=== PATIENT | male | born 1995 | race African-American/Black ===

== ENCOUNTER 2020-03-28 00:20 | Observation (INO) | payer SELFPAY ==
[2020-03-28] MEDS ORDERED: ACETAMINOPHEN 325 MG TABLET PO ONE (02:40)
[2020-03-28] MEDS ORDERED: NORMAL SALINE 1000 ML 1,000 ML IV ONE ×3 (02:40→03:53)
[2020-03-28] MEDS ORDERED: ONDANSETRON HCL INJ/PF 4 MG/2 ML SDV IV ONE (02:41)
--- NOTE | 2020-03-28 02:42 | ER Document Report ---
ED GI/ - General Chief Complaint: Abdominal Pain Stated Complaint: FEVER,ABDOMINAL PAIN Time Seen by Provider: 03/28/20 02:20 Mode of Arrival: Ambulatory Information source: Patient Notes: Patient presents complaining of right lower quadrant abdominal pain for the past 3 days. Patient reports nausea vomiting x2 episodes today. No no diarrhea, no urinary symptoms. Patient is pale, diaphoretic and complains of feeling lightheaded. TRAVEL OUTSIDE OF THE [place] IN LAST 30 DAYS: No - HPI Patient complains to provider of: Abdominal pain, Vomiting Onset: Other - 3 days Timing/Duration: Worse Quality of pain: Sharp Pain Level: 4 Location: RLQ Associated symptoms: Chills, Fever - Subjective, Nausea, Vomiting. denies: Diarrhea, Urinary hesitancy, Urinary frequency, Urinary retention Exacerbated by: Denies Relieved by: Denies Similar symptoms previously: No Recently seen / treated by doctor: No - Related Data Allergies/Adverse Reactions: iodine Allergy (Verified 03/28/20 06:46) peanut Allergy (Verified 03/28/20 06:46) shellfish derived Allergy (Verified 03/28/20 06:46) Past Medical History - General Information source: Patient - Social History Smoking Status: Never Smoker Frequency of alcohol use: None Drug Abuse: None Occupation: Property management Lives with: Family Family History: Reviewed & Not Pertinent - Medical History Medical History: Negative Past Surgical History: Reports: Hx Orthopedic Surgery - pin in both hips, Hx Tonsillectomy - Immunizations Immunizations up to date: Yes Hx Diphtheria, Pertussis, Tetanus Vaccination: Yes Review of Systems - Review of Systems Constitutional: Chills, Fever EENT: No symptoms reported Cardiovascular: Dizziness, Lightheaded Respiratory: No symptoms reported. denies: Cough, Short of breath Gastrointestinal: Abdominal pain, Nausea, Vomiting. denies: Diarrhea Genitourinary: No symptoms reported. denies: Dysuria, Flank pain Male Genitourinary: No symptoms reported Musculoskeletal: No symptoms reported Skin: No symptoms reported Hematologic/Lymphatic: No symptoms reported Neurological/Psychological: No symptoms reported Physical Exam - Vital signs Vitals: Temp Pulse Resp BP Pulse Ox 99.3 F 146 H 16 129/58 H 97 03/28/20 01:13 03/28/20 01:13 03/28/20 01:13 03/28/20 01:13 03/28/20 01:13 - General General appearance: Alert In distress: Moderate Notes: Patient pale, diaphoretic - HEENT Head: Normocephalic Eyes: Normal Conjunctiva: Normal Nasal: Normal Mouth/Lips: Normal Mucous membranes: Normal Neck: Normal, Supple. No: Lymphadenopathy - Respiratory Respiratory status: No respiratory distress Chest status: Nontender Breath sounds: Normal. No: Rales, Rhonchi, Stridor, Wheezing Chest palpation: Normal - Cardiovascular Rhythm: Tachycardia Heart sounds: S1 appreciated, S2 appreciated - Abdominal Inspection: Obese Distension: No distension Bowel sounds: Normal Tenderness: Tender Organomegaly: No organomegaly - Back Back: Normal, Nontender. No: CVA tenderness - Extremities General upper extremity: Normal inspection, Nontender, Normal ROM General lower extremity: Normal inspection, Nontender, Normal ROM - Neurological Neuro grossly intact: Yes Cognition: Normal [place] Coma Scale Eye Opening: Spontaneous [place] Coma Scale Verbal: Oriented [place] Coma Scale Motor: Obeys Commands [place] Coma Scale Total: 15 - Psychological Associated symptoms: Normal affect, Normal mood - Skin Skin Temperature: Warm Skin Moisture: Diaphoretic Skin Color: Pale Course - Re-evaluation Re-evalutation: 03/28/20 06:[address] Shah who states that patient has acute appendicitis with questionable early perforation to the distal tip. Call then placed to surgeon Dr. Suarez who states that he will be by to see patient in an hour or 2 and recommends keeping patient n.p.o. He will plan to take patient to surgery around 10 AM. 03/28/20 08:40 Report and handoff given to Maureen Josue NP - Vital Signs Vital signs: Temp Pulse Resp BP Pulse Ox 98.5 F 146 H 14 99/84 L 100 03/28/20 08:21 03/28/20 01:13 03/28/20 07:46 03/28/20 07:46 03/28/20 07:46 - Laboratory Result Diagrams: 03/28/20 03:10 03/28/20 03:10 Laboratory results interpreted by me: 03/28/20 03/28/20 03/28/20 03:10 03:10 03:10 Plt Count 140 L Lymph % (Auto) 6.6 L [place] % (Auto) 1.7 L Seg Neutrophils % 91.6 H PT 15.7 H Sodium 134.6 L Chloride 94 L Creatinine 1.56 H Est GFR (MDRD) Non-Af 55 L Glucose 125 H Total Bilirubin 1.7 H Urine Ketones 03/28/20 05:52 Plt Count Lymph % (Auto) [place] % (Auto) Seg Neutrophils % PT Sodium Chloride Creatinine Est GFR (MDRD) Non-Af Glucose Total Bilirubin Urine Ketones TRACE H - Diagnostic Test Radiology reviewed: Reports reviewed Discharge - Discharge Clinical Impression: Appendicitis Qualifiers: Appendicitis type: acute appendicitis Acute appendicitis type: unspecified acute appendicitis type Qualified Code(s): K35.80 - Unspecified acute appendicitis Abdominal pain Qualifiers: Abdominal location: right lower quadrant Qualified Code(s): R10.31 - Right lower quadrant pain Condition: Fair Disposition: ADMITTED OBSERVATION Admitting Provider: Surgicalist Unit Admitted: OR
[2020-03-28 03:27] LABS: ABSOLUTE LYMPHOCYTES (AUTO) 0.5 10^3/uL (0.5-4.7); ABSOLUTE MONOCYTES (AUTO) 0.1 10^3/uL (0.1-1.4); ABSOLUTE NEUT (AUTO) 6.9 10^3/uL (1.7-8.2); BASOPHILS % (AUTO) 0.1 % (0-2); HEMATOCRIT 43.4 % (37.9-51.0); HEMOGLOBIN 15.2 g/dL (13.5-17.0); LYMPHOCYTES % (AUTO) 6.6 % (13-45); MEAN CORPUSCULAR HEMOGLOBIN 30.3 pg (27.0-33.4); MEAN CORPUSCULAR HGB CONC 35.1 g/dL (32.0-36.0); MEAN CORPUSCULAR VOLUME 86 fl (80-97); MONOCYTES % (AUTO) 1.7 % (3-13); PLATELET COUNT 140 10^3/uL (150-450); RED BLOOD COUNT 5.04 10^6/uL (4.35-5.55); RED CELL DISTRIBUTION WIDTH 13.8 % (11.5-14.0); SEGMENTED NEUTROPHILS % (AUTO) 91.6 % (42-78); TOTAL CELLS COUNTED % (AUTO) 100 %; WHITE BLOOD COUNT 7.6 10^3/uL (4.0-10.5)
[2020-03-28 03:43] LABS: ALBUMIN 4.7 g/dL (3.5-5.0); ALKALINE PHOSPHATASE 75 U/L (38-126); ANION GAP 12 (5-19); ASPARTATE AMINO TRANSFERASE 32 U/L (17-59); BILIRUBIN,DIRECT 0.2 mg/dL (0.0-0.4); BILIRUBIN,TOTAL 1.7 mg/dL (0.2-1.3); BLOOD UREA NITROGEN 13 mg/dL (7-20); CALCIUM 9.3 mg/dL (8.4-10.2); CARBON DIOXIDE 29 mmol/L (22-30); CHLORIDE 94 mmol/L (98-107); GLUCOSE 125 mg/dL (75-110); POTASSIUM 3.7 mmol/L (3.6-5.0)
[2020-03-28 03:44] LABS: INTERNATIONAL RATION (INR) 1.25; PROTHROMBIN TIME 15.7 SEC (11.4-15.4)
[2020-03-28 03:45] LABS: VENOUS BLOOD BASE EXCESS 1.8 mmol/L; VENOUS BLOOD HCO3 27.8 mmol/L (20-32); VENOUS BLOOD PCO2 47.9 mmHg (35-63); VENOUS BLOOD PH 7.38 (7.30-7.42)
[2020-03-28] MEDS ORDERED: PIPERACILLIN/TAZOBACTAM 3.375 GM VIAL IV ONE ×2 (03:55→10:00)
--- NOTE | 2020-03-28 05:42 | RADIOLOGY REPORT (SQ) ---
EXAM DESCRIPTION: XR CHEST 1 VIEW COMPLETED DATE/TME: 03/28/2020 02:22 CLINICAL HISTORY: 24 years Male, fever COMPARISON:Sep 04 2016 NUMBER OF VIEWS/TECHNIQUE: 1/AP FINDINGS: Adequate lung volume, clear parenchyma, normal cardiac silhouette, and intact bony thorax. IMPRESSION: No acute cardiopulmonary findings.
--- NOTE | 2020-03-28 06:17 | RADIOLOGY REPORT (SQ) ---
CT abdomen and pelvis with contrast on 03/28/2020 at 4:52 AM CLINICAL INDICATION: Right lower quadrant pain TECHNIQUE: Multiple axial images are obtained throughout the abdomen and pelvis following the administration of IV contrast, 100 mL of Omnipaque 300contrast was administered intravenously without complication. This exam was performed according to our departmental dose-optimization program, which includes automated exposure control, adjustment of the mA and/or kV according to patient size and/or use of iterative reconstruction technique. Total DLP is 2094.17 mGy*cm. COMPARISON: None FINDINGS: Abdomen: Mild bilateral gynecomastia is noted. The lung bases are clear. The solid abdominal organs are unremarkable. There is no abdominal adenopathy. There is significant fluid and stranding in the right paracolic gutter. The appendix is significantly dilated and fluid-filled with surrounding fat stranding consistent with acute appendicitis. The appendix measures up to 2 cm in diameter. Along the distal aspect of the appendix there are several small rounded foci of air worrisome for early perforation. No abscess formation is noted but there is significant fluid and stranding in the right abdomen and pelvis related to the appendicitis. Recommend urgent surgical consultation. The abdominal portion of the GI tract is otherwise unremarkable. Pelvis: Small amount of free fluid is noted in the pelvis. There is no pelvic adenopathy. Pelvic portion of the GI tract is otherwise unremarkable. There is mild scoliosis of the spine. Screws are noted within each hip. No acute bony abnormality is noted. IMPRESSION: 1. Findings consistent with significant acute appendicitis and worrisome for early perforated appendicitis. Recommend urgent surgical consultation. 2. No other acute abnormality.
[2020-03-28 06:19] LABS: APPEARANCE,URINE CLEAR; BILIRUBIN,URINE NEGATIVE (NEGATIVE); COLOR,URINE YELLOW; GLUCOSE, URINE NEGATIVE (NEGATIVE); KETONES,URINE TRACE mg/dL (NEGATIVE); PROTEIN,URINE NEGATIVE (NEGATIVE); URINE SPECIFIC GRAVITY 1.017; UROBILINOGEN,URINE NEGATIVE mg/dL (<2.0)
[2020-03-28] MEDS ORDERED: NORMAL SALINE 1000 ML 600 ML IV ONE (06:45)
--- NOTE | 2020-03-28 09:36 | PDOC H&P ---
History of Present Illness Admission Date/PCP: 03/28/20 06:31 History of Present Illness: FELIPE COPELAND JR is a 24 year old malePatient presents complaining of right lower quadrant abdominal pain for the past 3 days. Patient reports nausea vomiting x2 episodes today. No no diarrhea, no urinary symptoms. Patient is pale, diaphoretic and complains of feeling lightheaded. TRAVEL OUTSIDE OF THE [place] IN LAST 30 DAYS: No Past Surgical History Past Surgical History: Reports: Orthopedic Surgery - pin in both hips, Tons illectomy Social History Lives with: Family Smoking Status: Never Smoker Family History Family History: Reviewed & Not Pertinent Parental Family History Reviewed: No Children Family History Reviewed: NA Sibling(s) Family History Reviewed.: NA Medication/Allergy Home Medications: Ondansetron [Zofran Odt 4 mg Tablet] 1 - 2 tab PO Q4H #10 tab.rapdis 09/04/16 Tramadol HCl [Ultram] 50 mg PO Q6 #30 tablet 09/04/16 Allergies/Adverse Reactions: iodine Allergy (Verified 03/28/20 06:46) peanut Allergy (Verified 03/28/20 06:46) shellfish derived Allergy (Verified 03/28/20 06:46) Review of Systems Constitutional: PRESENT: anorexia, fever(s) Eyes: ABSENT: as per HPI, visual disturbances, other Ears: ABSENT: as per HPI, hearing changes, other Nose, Mouth, and Throat: ABSENT: as per HPI, headache(s), mouth pain, sore throat, vertigo, other Breasts: ABSENT: as per HPI, other Cardiovascular: ABSENT: as per HPI, chest pain, dyspnea on exertion, edema, orthropnea, palpitations, other Gastrointestinal: PRESENT: abdominal pain Genitourinary: ABSENT: as per HPI, difficulty urinating, dysuria, hematuria, nocturia, other Musculoskeletal: ABSENT: as per HPI, back pain, deformity, joint swelling, muscle weakness, other Integumentary: ABSENT: as per HPI, diaphoresis, erythema, lesions, pruritus, rash, wounds, other Neurological: ABSENT: as per HPI, abnormal gait, abnormal movements, abnormal speech, confusion, convulsions, dizziness, focal weakness, frequent falls, lack of coordination, memory loss, numbness, paresthesias, restless legs, syncope, tingling, tremor(s), vertigo, weakness, other Psychiatric: ABSENT: as per HPI, anxiety, depression, hallucinations, homidical ideation, suicidal ideation, other Endocrine: ABSENT: as per HPI, cold intolerance, flushing, heat intolerance, menstrual abnormalities, polydipsia, polyphagia, polyuria, other Hematologic/Lymphatic: ABSENT: as per HPI, easy bleeding, easy bruising, lymphadenopathy, other Allergic/Immunologic: ABSENT: as per HPI, seasonal rhinorrhea, other Physical Exam Vital Signs: Temp Pulse Resp BP Pulse Ox 98.5 F 146 H 17 95/55 L 100 03/28/20 08:21 03/28/20 01:13 03/28/20 09:16 03/28/20 09:16 03/28/20 09:16 Intake & Output 03/27/20 03/28/20 03/29/20 06:59 06:59 06:59 Intake Total 3000 200 Balance 3000 200 Weight 122.47 kg General appearance: PRESENT: mild distress, obese Head exam: PRESENT: atraumatic Eye exam: PRESENT: EOMI Ear exam: PRESENT: normal external ear exam Mouth exam: PRESENT: moist Neck exam: PRESENT: full ROM Respiratory exam: PRESENT: clear to auscultation dhiraj Cardiovascular exam: PRESENT: RRR Pulses: PRESENT: normal radial pulses, normal femoral pulses Breast: PRESENT: Normal GI/Abdominal exam: PRESENT: guarding - rlw tenderness, guarding, rebound, tenderness Rectal exam: PRESENT: deferred Extremities exam: PRESENT: full ROM Musculoskeletal exam: PRESENT: full ROM Neurological exam: PRESENT: alert, awake, oriented to person, oriented to place Psychiatric exam: PRESENT: appropriate affect Skin exam: PRESENT: dry Results Laboratory Results: 03/28/20 03:10 03/28/20 03:10 03/28/20 03/28/20 03/28/20 03:10 03:10 03:10 WBC 7.6 RBC 5.04 Hgb 15.2 Hct 43.4 MCV 86 MCH 30.3 MCHC 35.1 RDW 13.8 Plt Count 140 L Seg Neutrophils % 91.6 H VBG pH 7.38 VBG pCO2 47.9 VBG HCO3 27.8 VBG Base Excess 1.8 Sodium 134.6 L Potassium 3.7 Chloride 94 L Carbon Dioxide 29 Anion Gap 12 BUN 13 Creatinine 1.56 H Est GFR ( Amer) > 60 Glucose 125 H Lactic Acid Calcium 9.3 Total Bilirubin 1.7 H AST 32 Alkaline Phosphatase 75 Total Protein 8.0 Albumin 4.7 Lipase 38.2 Urine Color Urine Appearance Urine pH Ur Specific [place] Urine Protein Urine Glucose (UA) Urine Ketones Urine Blood Urine RBC (Auto) 03/28/20 03/28/20 03:10 05:52 WBC RBC Hgb Hct MCV MCH MCHC RDW Plt Count Seg Neutrophils % VBG pH VBG pCO2 VBG HCO3 VBG Base Excess Sodium Potassium Chloride Carbon Dioxide Anion Gap BUN Creatinine Est GFR ( Amer) Glucose Lactic Acid 1.7 Calcium Total Bilirubin AST Alkaline Phosphatase Total Protein Albumin Lipase Urine Color YELLOW Urine Appearance CLEAR Urine pH 6.0 Ur Specific [place] 1.017 Urine Protein NEGATIVE Urine Glucose (UA) NEGATIVE Urine Ketones TRACE H Urine Blood NEGATIVE Urine RBC (Auto) 1 Impressions: Chest X-Ray 03/28/20 02:22 IMPRESSION: No acute cardiopulmonary findings. Abdomen/Pelvis CT 03/28/20 03:50 IMPRESSION: 1. Findings consistent with significant acute appendicitis and worrisome for early perforated appendicitis. Recommend urgent surgical consultation. 2. No other acute abnormality. Assessment & Plan - Plan Summary Plan Summary: acute appendicitis to or for lap appendectomy risks benifitrs discussed.
[2020-03-28] MEDS ORDERED: PROMETHAZINE HCL INJ 25 MG/1 ML VIAL ONE (09:41)
[2020-03-28] MEDS ORDERED: FENTANYL CITRATE INJ/PF 100 MCG/2 ML AMPUL ONE (09:41)
[2020-03-28] MEDS ORDERED: MIDAZOLAM 2 MG/2 ML INJ ONE (09:42)
[2020-03-28] MEDS ORDERED: DEXAMETHASONE SOD PHOSPHATE INJ 4 MG/1 ML VIAL ONE (09:42)
[2020-03-28] MEDS ORDERED: ONDANSETRON HCL INJ/PF 4 MG/2 ML SDV ONE (09:42)
[2020-03-28] MEDS ORDERED: PROPOFOL INJ 200 MG/20 ML VIAL IV ONE (09:42)
--- NOTE | 2020-03-28 09:54 | EKG REPORT ---
SEVERITY:- OTHERWISE NORMAL ECG - SINUS TACHYCARDIA : Confirmed by: Tommie Sutherland MD 28-Mar-2020 09:53:17
[2020-03-28] MEDS ORDERED: SUCCINYLCHOLINE CHLORIDE INJ 200 MG/10 ML VIAL ONE (10:08)
[2020-03-28] MEDS ORDERED: ROCURONIUM BROMIDE INJ 50 MG/5 ML VIAL IV ONE (10:08)
[2020-03-28] MEDS ORDERED: NEOSTIGMINE METHYLSULFATE 10 MG/10 ML VIAL ONE (10:08)
[2020-03-28] MEDS ORDERED: KETOROLAC TROMETHAMINE 60 MG/2 ML SDV ONE (10:08)
[2020-03-28] MEDS ORDERED: GLYCOPYRROLATE 1 MG/5 ML VIAL ONE (10:08)
[2020-03-28] MEDS ORDERED: FENTANYL CITRATE INJ/PF 100 MCG/2 ML AMPUL IV PRN ×3 (10:26)
[2020-03-28] MEDS ORDERED: MEPERIDINE HCL/PF INJ 25 MG/1 ML DISP.SYRIN IV PRN (10:26)
[2020-03-28] MEDS ORDERED: DIPHENHYDRAMINE HCL 50 MG/ML VIAL IV PRN (10:26)
[2020-03-28] MEDS ORDERED: PROMETHAZINE HCL INJ 25 MG/1 ML VIAL IV PRN ×2 (10:26)
[2020-03-28] MEDS ORDERED: MORPHINE SULFATE 10 MG/ML INJ IV PRN (10:26)
[2020-03-28] MEDS: BUPIVACAINE HCL 0.5%-EPI 1:200000 INJ/PF 30 ML VIAL ONE ×2 (11:02→11:16)
--- NOTE | 2020-03-28 11:25 | Operative Report ---
Nonrecallable Operative Report DATE OF SURGERY: 03/28/20 PREOPERATIVE DIAGNOSIS: appendicitis POSTOPERATIVE DIAGNOSIS: appendicitis OPERATION: laparoscopic appendectomy SURGEON: SALOMÓN MOYA ANESTHESIA: GA TISSUE REMOVED OR ALTERED: Appendix COMPLICATIONS: None ESTIMATED BLOOD LOSS: 25 cc INTRAOPERATIVE FINDINGS: Separative appendicitis PROCEDURE: Patient brought the operating room awake alert stable condition placed in the operating table supine position induced under general anesthesia intubated. The abdomen was prepped and draped in usual sterile fashion. After appropriate timeout site verification the procedure commenced. The varies needle was placed into the umbilicus and the abdomen was insufflated 6 L of CO2 gas infraumbilical 5 mm incision was made with a 15 blade After adequate insufflation the 5 mm port was placed in the infraumbilical position intra-abdominal visualization revealed no evidence of Veress needle trocar injury. A left lower quadrant 10 mm port placed under direct vision and a suprapubic 5 mm port appendix was visualized it was in a retrocecal position was mobilized medially and there was some fibrinous exudate on top of the appendix there is no obvious perforation was placed on traction the mesoappendix was taken down with one firing the Endo STEPHANIE stapler with a vascular then we came across the base of the appendix on the cecum with one firing the Endo STEPHANIE stapler with a blue load the appendix was placed in an Endobag and removed through the left lower quadrant port site. The right lower quadrant and pelvis was copiously irrigated normal saline suctioned dry the left lower quadrant fascial defect was closed with 0 Vicryl and all 3 skin incisions were closed with intracuticular 4-0 Biosyn Steri-Strips completed the procedure estimated blood loss was less than 25 cc sponge needle counts correct x2 the patient was awakened in the operative extubated transferred recovery in stable condition no complications
--- NOTE | 2020-03-28 11:32 | PDOC DISCHARGE SUMMARY ---
General - Admit/Disc Date/PCP Admission Date/Primary Care Provider: 03/28/20 06:31 Discharge Date: 03/28/20 - Discharge Diagnosis Final Diagnosis: Appendicitis - Additional Information Resuscitation Status: Full Code Discharge Diet: As Tolerated Discharge Activity: Activity As Tolerated, No Lifting Over 10 Pounds Prescriptions: Metronidazole [Flagyl 250 mg Tablet] 250 mg PO Q8 #21 tablet Metronidazole [Flagyl 250 mg Tablet] 250 mg PO Q8 #21 tablet Hydrocodone/Acetaminophen [[place] 10-325 Tablet] 1 each PO Q6HP PRN #20 tablet PRN Reason: Sulfamethoxazole/Trimethoprim [Septra-Ds 800-160 mg Tablet] 1 tab PO BID #20 tablet Home Medications: Ondansetron [Zofran Odt 4 mg Tablet] 1 - 2 tab PO Q4H #10 tab.rapdis 09/04/16 Tramadol HCl [Ultram] 50 mg PO Q6 #30 tablet 09/04/16 Hydrocodone/Acetaminophen [[place] 10-325 Tablet] 1 each PO Q6HP PRN #20 tablet 03/28/20 Metronidazole [Flagyl 250 mg Tablet] 250 mg PO Q8 #21 tablet 03/28/20 Metronidazole [Flagyl 250 mg Tablet] 250 mg PO Q8 #21 tablet 03/28/20 Sulfamethoxazole/Trimethoprim [Septra-Ds 800-160 mg Tablet] 1 tab PO BID #20 tablet 03/28/20 History of Present Illiness History of Present Illness: FELIPE COPELAND JR is a 24 year old malePatient presents complaining of right lower quadrant abdominal pain for the past 3 days. Patient reports nausea vomiting x2 episodes today. No no diarrhea, no urinary symptoms. Patient is pale, diaphoretic and complains of feeling lightheaded. TRAVEL OUTSIDE OF THE [place] IN LAST 30 DAYS: No Physical Exam Vital Signs: Temp Pulse Resp BP Pulse Ox 98.5 F 146 H 22 H 96/65 L 100 03/28/20 08:21 03/28/20 01:13 03/28/20 09:46 03/28/20 09:46 03/28/20 09:46 Intake & Output 03/27/20 03/28/20 03/29/20 06:59 06:59 06:59 Intake Total 3000 1020 Output Total 820 Balance 3000 200 Weight 122.47 kg Results Laboratory Results: WBC 7.6 10^3/uL (4.0-10.5) 03/28/20 03:10 RBC 5.04 10^6/uL (4.35-5.55) 03/28/20 03:10 Hgb 15.2 g/dL (13.5-17.0) 03/28/20 03:10 Hct 43.4 % (37.9-51.0) 03/28/20 03:10 MCV 86 fl (80-97) 03/28/20 03:10 MCH 30.3 pg (27.0-33.4) 03/28/20 03:10 MCHC 35.1 g/dL (32.0-36.0) 03/28/20 03:10 RDW 13.8 % (11.5-14.0) 03/28/20 03:10 Plt Count 140 10^3/uL (150-450) L 03/28/20 03:10 Lymph % (Auto) 6.6 % (13-45) L 03/28/20 03:10 [place] % (Auto) 1.7 % (3-13) L 03/28/20 03:10 Eos % (Auto) 0.0 % (0-6) 03/28/20 03:10 Baso % (Auto) 0.1 % (0-2) 03/28/20 03:10 Absolute Neuts (auto) 6.9 10^3/uL (1.7-8.2) 03/28/20 03:10 Absolute Lymphs (auto) 0.5 10^3/uL (0.5-4.7) 03/28/20 03:10 Absolute Monos (auto) 0.1 10^3/uL (0.1-1.4) 03/28/20 03:10 Absolute Eos (auto) 0.0 10^3/uL (0.0-0.6) 03/28/20 03:10 Absolute Basos (auto) 0.0 10^3/uL (0.0-0.2) 03/28/20 03:10 Seg Neutrophils % 91.6 % (42-78) H 03/28/20 03:10 PT 15.7 SEC (11.4-15.4) H 03/28/20 03:10 INR 1.25 03/28/20 03:10 VBG pH 7.38 (7.30-7.42) 03/28/20 03:10 VBG pCO2 47.9 mmHg (35-63) 03/28/20 03:10 VBG HCO3 27.8 mmol/L (20-32) 03/28/20 03:10 VBG Base Excess 1.8 mmol/L 03/28/20 03:10 Sodium 134.6 mmol/L (137-145) L 03/28/20 03:10 Potassium 3.7 mmol/L (3.6-5.0) 03/28/20 03:10 Chloride 94 mmol/L (98-107) L 03/28/20 03:10 Carbon Dioxide 29 mmol/L (22-30) 03/28/20 03:10 Anion Gap 12 (5-19) 03/28/20 03:10 BUN 13 mg/dL (7-20) 03/28/20 03:10 Creatinine 1.56 mg/dL (0.52-1.25) H 03/28/20 03:10 Est GFR ( Amer) > 60 (>60) 03/28/20 03:10 Est GFR (MDRD) Non-Af 55 (>60) L 03/28/20 03:10 Glucose 125 mg/dL (75-110) H 03/28/20 03:10 POC Glucose 102 mg/dL (70-110) 03/28/20 03:54 Lactic Acid 1.7 mmol/L (0.7-2.1) 03/28/20 03:10 Calcium 9.3 mg/dL (8.4-10.2) 03/28/20 03:10 Total Bilirubin 1.7 mg/dL (0.2-1.3) H 03/28/20 03:10 Direct Bilirubin 0.2 mg/dL (0.0-0.4) 03/28/20 03:10 Neonat Total Bilirubin Not Reportable 03/28/20 03:10 Neonat Direct Bilirubin Not Reportable 03/28/20 03:10 Neonat Indirect Bili Not Reportable 03/28/20 03:10 AST 32 U/L (17-59) 03/28/20 03:10 ALT 19 U/L (<50) 03/28/20 03:10 Alkaline Phosphatase 75 U/L (38-126) 03/28/20 03:10 Total Protein 8.0 g/dL (6.3-8.2) 03/28/20 03:10 Albumin 4.7 g/dL (3.5-5.0) 03/28/20 03:10 Lipase 38.2 U/L (23-300) 03/28/20 03:10 Urine Color YELLOW 03/28/20 05:52 Urine Appearance CLEAR 03/28/20 05:52 Urine pH 6.0 (5.0-9.0) 03/28/20 05:52 Ur Specific [place] 1.017 03/28/20 05:52 Urine Protein NEGATIVE mg/dL (NEGATIVE) 03/28/20 05:52 Urine Glucose (UA) NEGATIVE mg/dL (NEGATIVE) 03/28/20 05:52 Urine Ketones TRACE mg/dL (NEGATIVE) H 03/28/20 05:52 Urine Blood NEGATIVE (NEGATIVE) 03/28/20 05:52 Urine Nitrite (Reflex) NEGATIVE (NEGATIVE) 03/28/20 05:52 Urine Bilirubin NEGATIVE (NEGATIVE) 03/28/20 05:52 Urine Urobilinogen NEGATIVE mg/dL (<2.0) 03/28/20 05:52 Leukocyte Esterase Rfl NEGATIVE (NEGATIVE) 03/28/20 05:52 Urine RBC (Auto) 1 /HPF 03/28/20 05:52 Urine WBC (Reflex) 6 /HPF 03/28/20 05:52 Urine Mucus (Auto) RARE /LPF 03/28/20 05:52 Urine Ascorbic Acid NEGATIVE (NEGATIVE) 03/28/20 05:52 Impressions: Chest X-Ray 03/28/20 02:22 IMPRESSION: No acute cardiopulmonary findings. Abdomen/Pelvis CT 03/28/20 03:50 IMPRESSION: 1. Findings consistent with significant acute appendicitis and worrisome for early perforated appendicitis. Recommend urgent surgical consultation. 2. No other acute abnormality.
[2020-03-28] MEDS: MEPERIDINE HCL/PF INJ 25 MG/1 ML DISP.SYRIN ONE ×2 (11:35→11:50)
[2020-03-28 14:24] VITALS: BP 134/68
== END 2020-03-28 13:20 | disposition home or self-care (01) ==
LOC: ER 00:20 → EH 06:31
PROVIDERS: ATTEND Surgery
DX: K35.80 Unspecified acute appendicitis (principal); R42 Dizziness and giddiness; R00.0 Tachycardia, unspecified; E66.9 Obesity, unspecified; R61 Generalized hyperhidrosis
CPT/HCPCS: 93005; 36415; 87040; 82962; 83605; 83690; 85025; 85610; 87077; 80053; 81001; 82803; 87150 ×26; 88304 ×2; 71045; 74177; 93010; 99140; 00840; 44970; J2250; J3490 ×3; J1100; J1885; J3010; J2175; J2710; J2550; J0330; J2405; J7030; J2704; J2543; 840; 87186